=== PATIENT | male | born 1975 ===

== ENCOUNTER 2020-12-04 16:33 | Emergency (ER) | payer SELFPAY ==
[~2020-12-04] VITALS: Ht 182.9 cm; Wt 100.0 kg
[2020-12-04 16:45] VITALS: BP 147/75
== END 2020-12-04 20:00 | disposition left against medical advice (07) ==
LOC: EMS 16:36
DX: R52 Pain, unspecified (principal); Z53.21 Procedure and treatment not carried out due to patient leaving prior to being seen by health care provider